=== PATIENT | female | born 1985 | race Caucasian/White ===

== ENCOUNTER 2017-11-27 15:28 | Emergency (ER) | END 2017-11-27 19:13 | disposition home or self-care (01) ==

== ENCOUNTER 2018-01-02 22:36 | Inpatient (IN) | END 2018-01-03 19:15 | disposition home or self-care (01) | DRG 778 ==

== ENCOUNTER 2018-01-04 17:53 | Inpatient (IN) | END 2018-01-05 17:10 | disposition home or self-care (01) | DRG 767 ==